=== PATIENT | female | born 1935 | race Caucasian/White ===

== ENCOUNTER → 2017-05-05 | Outpatient (CLI) | payer OTHER | LOC: CAT 08:59 | DX: J84.10 Pulmonary fibrosis, unspecified (principal); K44.9 Diaphragmatic hernia without obstruction or gangrene; E04.1 Nontoxic single thyroid nodule ==

== ENCOUNTER → 2017-11-29 | Outpatient (CLI) | payer OTHER | LOC: CAT 12:40 | DX: J84.10 Pulmonary fibrosis, unspecified (principal); K44.9 Diaphragmatic hernia without obstruction or gangrene; K80.80 Other cholelithiasis without obstruction; E04.2 Nontoxic multinodular goiter; I70.0 Atherosclerosis of aorta ==

== ENCOUNTER → 2018-08-22 | Outpatient (CLI) | payer OTHER | LOC: CAT 13:05 | DX: K44.9 Diaphragmatic hernia without obstruction or gangrene (principal); I77.810 Thoracic aortic ectasia; K80.80 Other cholelithiasis without obstruction; E04.2 Nontoxic multinodular goiter; I25.10 Atherosclerotic heart disease of native coronary artery without angina pectoris; I70.0 Atherosclerosis of aorta; J84.10 Pulmonary fibrosis, unspecified; R59.0 Localized enlarged lymph nodes; J92.9 Pleural plaque without asbestos ==

== ENCOUNTER → 2019-07-09 | Outpatient (CLI) | payer OTHER | LOC: CAT 09:03 | DX: J84.112 Idiopathic pulmonary fibrosis (principal); K44.9 Diaphragmatic hernia without obstruction or gangrene; K80.20 Calculus of gallbladder without cholecystitis without obstruction ==

== ENCOUNTER → 2020-05-06 | Outpatient (CLI) | payer OTHER | LOC: CAT 08:46 | PROVIDERS: ATTEND Internal Medicine | DX: K80.20 Calculus of gallbladder without cholecystitis without obstruction (principal); J84.112 Idiopathic pulmonary fibrosis; K44.9 Diaphragmatic hernia without obstruction or gangrene ==

== ENCOUNTER → 2020-07-17 | Outpatient (CLI) | payer OTHER | LOC: RAD 13:46 | PROVIDERS: ATTEND Internal Medicine | DX: J18.9 Pneumonia, unspecified organism (principal); J98.11 Atelectasis; K44.9 Diaphragmatic hernia without obstruction or gangrene ==